=== PATIENT | male | born 1945 | race African-American/Black ===

== ENCOUNTER 2022-11-26 12:13 | Emergency (ER) | payer OTHER ==
[2022-11-26 12:46] LABS: Actual Bicarbonate (HCO3v) 16 mEq/L (22-28); Analyzer IN Cardio ER; Base Excess -15.6 mEq/L (-2.0 to +3.0); Calcium, Ionized (venous) 1.04 mmol/L (1.16-1.32); Chloride (VBG) 106 mmol/L (98-106); Hemoglobin (Hb) 9.8 g/dL (12.6-17.4); Potassium (VBG) 5.98 mmol/L (3.70-5.30); Sodium 142.3 mmol/L (133-146); pH (venous) 6.98 (7.32-7.43)
== END 2022-11-26 12:34 | disposition expired ==
LOC: ERS 12:13
DX: I46.9 Cardiac arrest, cause unspecified (principal); I50.9 Heart failure, unspecified
CPT/HCPCS: 82805; 96374; 96375